=== PATIENT | female | born 1935 | race African-American/Black ===

== ENCOUNTER 2018-02-07 15:00 | Inpatient (IN) | payer MEDICARE, MEDICAID ==
[~2018-02-07] VITALS: Ht 162.6 cm; Wt 65.8 kg
[~2018-02-07 15:00] MED LIST: AMLO1CAP5 PO; ASPI-1159 PO; ESOM40CA PO; FOLI-43 PO; GABA-531 PO; letrozole PO; methimazole PO; proair INH
[2018-02-07] MEDS ORDERED: MORPHINE SULFATE 4 MG/ML CPJ (NOT FOR IM USE) IV STA (15:42)
[2018-02-07] MEDS ORDERED: NITROGLYCERIN OINT 1GM/INCH UDPKT TD STA (15:42)
[2018-02-07] MEDS ORDERED: MAGNESIUM/ALUMINUM HYDROXIDE/SIMETHICONE 30ML UDC PO STA (15:42)
[2018-02-07] MEDS ORDERED: FAMOTIDINE 20MG TABLET PO STA (15:42)
[2018-02-07] MEDS ORDERED: ONDANSETRON HCL 4MG/2ML INJ IV STA (15:42)
[2018-02-07] MEDS ORDERED: ASPIRIN 325MG EC TABLET PO ONE (15:45)
[2018-02-07] MEDS ORDERED: VISCOUS LIDOCAINE 2% 15 ML UDC MM ONE (15:45)
[2018-02-07] MEDS ORDERED: AMIODARONE HCL 50MG/ML 9ML VIAL IV ONE (15:45)
[2018-02-07] MEDS ORDERED: FAMOTIDINE 20MG/2ML VIAL IV ONE (15:45)
[2018-02-07 16:40] LABS: BASOPHILS % 0.6 % (0.0-2.0); EOSINOPHILS % 0.7 % (0.0-5.0); HEMATOCRIT. 36.4 % (36.0-48.0); HEMOGLOBIN. 12.3 g/dL (12.0-16.0); LYMPHOCYTES % 19.8 % (20.0-50.0); MEAN CORPUSCULAR HEMOGLOBIN 30.1 pg (28.0-32.0); MEAN CORPUSCULAR VOLUME 89.4 fL (81.0-99.0); MEAN PLATELET VOLUME 7.8 fl (7.4-10.4); MONOCYTES % 8.4 % (2.0-8.0); NEUTROPHILS % 70.5 % (40.0-76.0); PLATELET 270 x1000/uL (130-400); RED BLOOD CELL COUNT 4.08 mill/uL (4.2-5.4); RED CELL DISTRIBUTION WIDTH 13.8 % (11.6-14.6)
[2018-02-07 16:49] LABS: PARTIAL THROMBOPLASTIN TIME 26.1 sec (23.4-31.0); PROTHROMBIN TIME 10.4 sec (9.1-11.1)
[2018-02-07 16:52] LABS: CHLORIDE 107 mEq/L (98-107)
[2018-02-07 19:00] VITALS: BP 175/73
[2018-02-07] MEDS ORDERED: ONDANSETRON HCL 4MG/2ML INJ IV PRN (20:30)
[2018-02-07] MEDS ORDERED: GUAIFENESIN 200MG/10ML SUGAR FREE UDC PO PRN (20:30)
[2018-02-07] MEDS ORDERED: MAGNESIUM/ALUMINUM HYDROXIDE/SIMETHICONE 30ML UDC PO PRN (20:30)
[2018-02-07] MEDS ORDERED: DILTIAZEM HCL 180MG CAPSULE CD 24HR PO SCH (23:00)
[2018-02-07 23:09] VITALS: BP 175/73
[2018-02-07 23:11] VITALS: BP 175/73
[2018-02-07] MEDS: GABAPENTIN 300MG CAPSULE PO SCH (23:29)
[2018-02-07] MEDS: FAMOTIDINE 20MG TABLET PO SCH (23:29)
[2018-02-07] MEDS: SODIUM CHLORIDE 0.9% INJ 3ML FLUSH IVF SCH (23:29)
[2018-02-08 04:00] VITALS: BP 143/79
[2018-02-08] MEDS: SODIUM CHLORIDE 0.9% INJ 3ML FLUSH IVF SCH ×3 (06:00→22:03)
[2018-02-08 07:06] LABS: CHLORIDE 110 mEq/L (98-107)
[2018-02-08 07:16] LABS: CLARITY URINE CLEAR (CLEAR); COLOR URINE YELLOW (YELLOW); KETONES URINE NEGATIVE (NEGATIVE); LEUKOCYTE ESTERASE URINE NEGATIVE (NEGATIVE); NITRITE URINE NEGATIVE (NEGATIVE); OCCULT BLOOD URINE NEGATIVE (NEGATIVE); PH URINE 6.5 (4.5-8.0); PROTEIN URINE NEGATIVE (NEGATIVE); SPECIFIC GRAVITY URINE 1.006 (1.005-1.030); UROBILINOGEN URINE 0.2 E.U./dL (0.2-1.0)
[2018-02-08 07:29] LABS: PHOSPHORUS 3.8 mg/dL (2.5-4.9); T4 FREE 1.22 ng/dL (0.76-1.46)
[2018-02-08] MEDS: FOLIC ACID/VITAMIN B COMP W-C TABLET PO SCH (08:33)
[2018-02-08] MEDS: DOCUSATE SODIUM 100MG CAPSULE PO SCH ×2 (08:33→16:54)
[2018-02-08] MEDS: METHIMAZOLE 5MG TABLET PO SCH (08:33)
[2018-02-08] MEDS: ENOXAPARIN 40MG/0.4ML SYR SUBCUT SCH (08:34)
[2018-02-08 08:54] LABS: BASOPHILS % 0.6 % (0.0-2.0); EOSINOPHILS % 1.6 % (0.0-5.0); HEMATOCRIT. 37.1 % (36.0-48.0); HEMOGLOBIN. 12.5 g/dL (12.0-16.0); MEAN CORPUSCULAR HEMOGLOBIN 30.4 pg (28.0-32.0); MEAN CORPUSCULAR VOLUME 89.8 fL (81.0-99.0); MEAN PLATELET VOLUME 7.9 fl (7.4-10.4); NEUTROPHILS % 68.8 % (40.0-76.0); PLATELET 258 x1000/uL (130-400); RED BLOOD CELL COUNT 4.13 mill/uL (4.2-5.4); RED CELL DISTRIBUTION WIDTH 13.7 % (11.6-14.6)
[2018-02-08] MEDS ORDERED: LETROZOLE 2.5MG TABLET PO SCH (09:00)
[2018-02-08] MEDS: POLYETHYLENE GLYCOL 3350 (17GM) 1 DOSE PACK PO SCH (11:45)
[2018-02-08] MEDS ORDERED: ACETAMINOPHEN 650MG/20.3ML UDC PO PRN (11:45)
[2018-02-08 12:00] VITALS: BP 128/67
[2018-02-08] MEDS ORDERED: BENAZEPRIL 5MG TABLET PO SCH (12:00)
[2018-02-08] MEDS ORDERED: CLONIDINE 0.1MG TABLET PO PRN (12:45)
[2018-02-08 16:00] VITALS: BP 139/72
[2018-02-08] MEDS: FLUTICASONE/VILANTEROL 200-25 BLST.W.DEV ORI SCH (16:06)
[2018-02-08] MEDS: AMIODARONE HCL 200 MG TABLET PO SCH ×2 (16:51→21:00)
[2018-02-08] MEDS: ASPIRIN 81MG EC TABLET PO SCH (16:51)
[2018-02-08 20:00] VITALS: BP 151/81
[2018-02-08] MEDS: FAMOTIDINE 20MG TABLET PO SCH ×2 (20:58→21:00)
[2018-02-08] MEDS: GABAPENTIN 300MG CAPSULE PO SCH ×2 (20:58→21:00)
[2018-02-08] MEDS: DILTIAZEM HCL 120MG CAPSULE CD 24HR PO SCH ×2 (20:59→21:00)
[2018-02-09] VITALS: BP 158/71
[2018-02-09 04:59] VITALS: BP 160/83
[2018-02-09 08:00] VITALS: BP 177/88
[2018-02-09 08:15] LABS: BASOPHILS % 0.6 % (0.0-2.0); EOSINOPHILS % 2.3 % (0.0-5.0); HEMATOCRIT. 37.2 % (36.0-48.0); HEMOGLOBIN. 12.4 g/dL (12.0-16.0); LYMPHOCYTES % 22.9 % (20.0-50.0); MEAN CORPUSCULAR HEMOGLOBIN 29.9 pg (28.0-32.0); MEAN CORPUSCULAR VOLUME 89.8 fL (81.0-99.0); MEAN PLATELET VOLUME 8.3 fl (7.4-10.4); MONOCYTES % 10.1 % (2.0-8.0); NEUTROPHILS % 64.1 % (40.0-76.0); PLATELET 264 x1000/uL (130-400); RED BLOOD CELL COUNT 4.14 mill/uL (4.2-5.4); RED CELL DISTRIBUTION WIDTH 13.5 % (11.6-14.6)
[2018-02-09] MEDS: DOCUSATE SODIUM 100MG CAPSULE PO SCH ×2 (08:22→16:57)
[2018-02-09] MEDS: METHIMAZOLE 5MG TABLET PO SCH (08:22)
[2018-02-09] MEDS: ASPIRIN 81MG EC TABLET PO SCH (08:22)
[2018-02-09] MEDS: POLYETHYLENE GLYCOL 3350 (17GM) 1 DOSE PACK PO SCH (08:22)
[2018-02-09] MEDS: FOLIC ACID/VITAMIN B COMP W-C TABLET PO SCH (08:22)
[2018-02-09] MEDS: ENOXAPARIN 40MG/0.4ML SYR SUBCUT SCH (08:23)
[2018-02-09 08:26] LABS: CHLORIDE 109 mEq/L (98-107)
[2018-02-09] MEDS: AMIODARONE HCL 200 MG TABLET PO SCH (08:30)
[2018-02-09 08:44] LABS: CREATINE KINASE 53 IU/L (26-192); CREATINE KINASE MB FRACTION 1.2 ng/mL (0.5-3.6); HDL CHOLESTEROL 49 mg/dL (40-59); LDL CHOLESTEROL 83 mg/dL (5-100)
[2018-02-09] MEDS: FLUTICASONE/VILANTEROL 200-25 BLST.W.DEV ORI SCH (09:00)
[2018-02-09] MEDS ORDERED: BENAZEPRIL 10MG TABLET PO SCH (09:00)
[2018-02-09] MEDS ORDERED: DILTIAZEM HCL 300MG CAPSULE SR 24HR PO SCH ×2 (09:00→21:00)
[2018-02-09] MEDS ORDERED: LETROZOLE 2.5MG TABLET PO SCH (09:30)
[2018-02-09] MEDS ORDERED: PRAMOXINE HCL 1% FOAM TP SCH (10:00)
[2018-02-09 12:00] VITALS: BP 153/78
[2018-02-09] MEDS: SODIUM CHLORIDE 0.9% INJ 3ML FLUSH IVF SCH (13:23)
[2018-02-09] MEDS ORDERED: LOT10 PO (13:30)
[2018-02-09] MEDS ORDERED: DILT300C35 PO (13:30)
[2018-02-09 17:04] VITALS: BP 145/80
== END 2018-02-09 17:27 | disposition home health service (06) | DRG 309 ==
LOC: ER 17:30 → 7WST 20:20 → ENRESERV 21:54
PROVIDERS: ADMIT Internal Medicine Nephrology; ATTEND Internal Medicine Nephrology
DX: I48.0 Paroxysmal atrial fibrillation (principal); J98.11 Atelectasis; Z96.642 Presence of left artificial hip joint; E03.9 Hypothyroidism, unspecified; G62.9 Polyneuropathy, unspecified; F32.9 Major depressive disorder, single episode, unspecified; F17.200 Nicotine dependence, unspecified, uncomplicated; E05.90 Thyrotoxicosis, unspecified without thyrotoxic crisis or storm; I11.9 Hypertensive heart disease without heart failure; R63.4 Abnormal weight loss; I48.2 Chronic atrial fibrillation; J44.9 Chronic obstructive pulmonary disease, unspecified; K59.00 Constipation, unspecified; L29.9 Pruritus, unspecified; K21.9 Gastro-esophageal reflux disease without esophagitis; M81.0 Age-related osteoporosis without current pathological fracture; M19.90 Unspecified osteoarthritis, unspecified site; T45.8X5A Adverse effect of other primarily systemic and hematological agents, initial encounter; Y92.89 Other specified places as the place of occurrence of the external cause; Z85.3 Personal history of malignant neoplasm of breast; Z79.82 Long term (current) use of aspirin; Z79.899 Other long term (current) drug therapy; Z79.811 Long term (current) use of aromatase inhibitors; Z92.3 Personal history of irradiation; Z68.24 Body mass index [BMI] 24.0-24.9, adult; Z88.8 Allergy status to other drugs, medicaments and biological substances; Z88.2 Allergy status to sulfonamides
CPT/HCPCS: 36415; 71045; 80061; 82550; 82553; 83735; 83880; 84100; 84439; 84443; 84484; 85379; 93005; 93306; 96374; 99285; J0282; J1650; J2270; J2405; J3490

== ENCOUNTER 2018-08-03 11:12 | Inpatient (IN) | payer MEDICARE, MEDICAID ==
[~2018-08-03] VITALS: Ht 162.6 cm; Wt 56.8 kg
[~2018-08-03 11:12] MED LIST changes: -AMLO1CAP5 PO; +DILT300C35 PO; +LOT10 PO
[2018-08-03 12:18] LABS: BASOPHILS % 0.9 % (0.0-2.0); EOSINOPHILS % 0.5 % (0.0-5.0); HEMATOCRIT. 36.9 % (36.0-48.0); HEMOGLOBIN. 12.7 g/dL (12.0-16.0); LYMPHOCYTES % 14.8 % (20.0-50.0); MEAN CORPUSCULAR HEMOGLOBIN 30.5 pg (28.0-32.0); MEAN CORPUSCULAR VOLUME 88.5 fL (81.0-99.0); MEAN PLATELET VOLUME 7.7 fl (7.4-10.4); MONOCYTES % 8.1 % (2.0-8.0); NEUTROPHILS % 75.7 % (40.0-76.0); PLATELET 254 x1000/uL (130-400); RED BLOOD CELL COUNT 4.17 mill/uL (4.2-5.4); RED CELL DISTRIBUTION WIDTH 13.5 % (11.6-14.6)
[2018-08-03 12:20] LABS: CHLORIDE 109 mEq/L (98-107)
[2018-08-03 12:22] LABS: PROTHROMBIN TIME 10.2 sec (9.6-11.0)
[2018-08-03] MEDS ORDERED: MORPHINE SULFATE 4 MG/ML CPJ (NOT FOR IM USE) IV PRN (14:30)
[2018-08-03] MEDS ORDERED: IPRATROPIUM/ALBUTEROL 0.5-3(2.5)MG/3ML NEB INH PRN (14:30)
[2018-08-03] MEDS ORDERED: NITROGLYCERIN 0.4MG TABLET SL SL PRN (14:30)
[2018-08-03] MEDS ORDERED: TRAMADOL 50MG TABLET PO PRN (14:30)
[2018-08-03] MEDS ORDERED: DOCUSATE SODIUM 100MG CAPSULE PO PRN (14:30)
[2018-08-03] MEDS ORDERED: GUAIFENESIN 200MG/10ML SUGAR FREE UDC PO PRN (14:30)
[2018-08-03] MEDS ORDERED: ACETAMINOPHEN 325MG TABLET PO PRN (14:30)
[2018-08-03] MEDS ORDERED: ENOXAPARIN 40MG/0.4ML SYR SUBCUT SCH (14:30)
[2018-08-03] MEDS ORDERED: ONDANSETRON HCL 4MG/2ML INJ IV PRN (14:30)
[2018-08-03] MEDS ORDERED: CLONIDINE 0.1MG TABLET PO PRN (14:30)
[2018-08-03] MEDS ORDERED: MAGNESIUM/ALUMINUM HYDROXIDE/SIMETHICONE 30ML UDC PO PRN (14:30)
[2018-08-03 17:00] VITALS: BP 124/62
[2018-08-03] MEDS ORDERED: DILTIAZEM HCL 30MG TABLET PO SCH (18:00)
[2018-08-03] MEDS ORDERED: APIX2.5T PO (18:13)
[2018-08-03] MEDS ORDERED: LETR2.5T6 PO (18:17)
[2018-08-03] MEDS: ASPIRIN 81MG TABLET PO SCH (18:48)
[2018-08-03] MEDS: ENOXAPARIN 60MG/0.6ML SYR SUBCUT SCH ×2 (18:48→22:22)
[2018-08-03] MEDS: METHIMAZOLE 5MG TABLET PO SCH (18:48)
[2018-08-03] MEDS: DILTIAZEM HCL 60MG TABLET PO SCH (18:48)
[2018-08-03] MEDS: BENAZEPRIL 10MG TABLET PO SCH ×2 (18:49→22:21)
[2018-08-03 20:00] VITALS: BP 126/69
[2018-08-03] MEDS ORDERED: ZOLPIDEM TARTRATE 5MG TABLET PO PRN (21:00)
[2018-08-03] MEDS: GABAPENTIN 300MG CAPSULE PO SCH (22:21)
[2018-08-03] MEDS ORDERED: IOHEXOL-350 100 ML BOTTLE ONE (22:33)
[2018-08-04] VITALS: BP 123/68
[2018-08-04] MEDS: DILTIAZEM HCL 60MG TABLET PO SCH ×4 (00:18→18:07)
[2018-08-04 04:00] VITALS: BP 119/61
[2018-08-04 06:15] LABS: BASOPHILS % 0.8 % (0.0-2.0); EOSINOPHILS % 3.3 % (0.0-5.0); HEMATOCRIT. 32.7 % (36.0-48.0); HEMOGLOBIN. 10.9 g/dL (12.0-16.0); LYMPHOCYTES % 26.8 % (20.0-50.0); MEAN CORPUSCULAR HEMOGLOBIN 29.8 pg (28.0-32.0); MEAN CORPUSCULAR VOLUME 89.1 fL (81.0-99.0); MONOCYTES % 10.9 % (2.0-8.0); NEUTROPHILS % 58.2 % (40.0-76.0); PLATELET 227 x1000/uL (130-400); RED BLOOD CELL COUNT 3.67 mill/uL (4.2-5.4); RED CELL DISTRIBUTION WIDTH 13.4 % (11.6-14.6)
[2018-08-04 06:22] LABS: CHLORIDE 108 mEq/L (98-107)
[2018-08-04 06:26] LABS: CLARITY URINE CLEAR (CLEAR); COLOR URINE YELLOW (YELLOW); KETONES URINE NEGATIVE (NEGATIVE); LEUKOCYTE ESTERASE URINE NEGATIVE (NEGATIVE); NITRITE URINE NEGATIVE (NEGATIVE); OCCULT BLOOD URINE TRACE (NEGATIVE); PROTEIN URINE NEGATIVE (NEGATIVE); SPECIFIC GRAVITY URINE 1.039 (1.005-1.030)
[2018-08-04 06:36] LABS: PHOSPHORUS 3.7 mg/dL (2.5-4.9)
[2018-08-04 06:38] LABS: CREATINE KINASE 56 IU/L (26-192)
[2018-08-04 08:00] VITALS: BP 148/79
[2018-08-04] MEDS ORDERED: ASPIRIN 325MG EC TABLET PO SCH (09:00)
[2018-08-04] MEDS: METHIMAZOLE 5MG TABLET PO SCH (09:20)
[2018-08-04] MEDS: ASPIRIN 81MG TABLET PO SCH (09:20)
[2018-08-04] MEDS: PANTOPRAZOLE SODIUM 40 MG/VIAL IV SCH (09:21)
[2018-08-04] MEDS: ENOXAPARIN 60MG/0.6ML SYR SUBCUT SCH ×2 (09:21→21:39)
[2018-08-04] MEDS: BENAZEPRIL 10MG TABLET PO SCH ×2 (09:21→21:38)
[2018-08-04 12:00] VITALS: BP 140/59
[2018-08-04 13:16] LABS: TOTAL IRON BINDING CAPACITY 246 ug/dL (250-450)
[2018-08-04 16:00] VITALS: BP_SYST 118; BP_SYST 139; BP_DIAS 62; BP_DIAS 83
[2018-08-04 20:00] VITALS: BP 135/65
[2018-08-04] MEDS: GABAPENTIN 300MG CAPSULE PO SCH (21:39)
[2018-08-05] VITALS: BP 130/63
[2018-08-05] MEDS: DILTIAZEM HCL 60MG TABLET PO SCH ×3 (01:17→12:45)
[2018-08-05 04:00] VITALS: BP 150/65
[2018-08-05 06:47] LABS: BASOPHILS % 0.7 % (0.0-2.0); EOSINOPHILS % 2.7 % (0.0-5.0); HEMATOCRIT. 34.2 % (36.0-48.0); HEMOGLOBIN. 11.3 g/dL (12.0-16.0); MEAN CORPUSCULAR HEMOGLOBIN 29.5 pg (28.0-32.0); MEAN CORPUSCULAR VOLUME 89.1 fL (81.0-99.0); MEAN PLATELET VOLUME 8.4 fl (7.4-10.4); MONOCYTES % 10.6 % (2.0-8.0); PLATELET 217 x1000/uL (130-400); RED BLOOD CELL COUNT 3.84 mill/uL (4.2-5.4); RED CELL DISTRIBUTION WIDTH 13.4 % (11.6-14.6)
[2018-08-05 06:57] LABS: CHLORIDE 108 mEq/L (98-107)
[2018-08-05 07:19] LABS: PHOSPHORUS 3.3 mg/dL (2.5-4.9)
[2018-08-05 08:00] VITALS: BP 123/86
[2018-08-05] MEDS: BENAZEPRIL 10MG TABLET PO SCH (09:58)
[2018-08-05] MEDS: ASPIRIN 81MG TABLET PO SCH (09:58)
[2018-08-05] MEDS: METHIMAZOLE 5MG TABLET PO SCH (09:58)
[2018-08-05] MEDS: PANTOPRAZOLE SODIUM 40 MG/VIAL IV SCH (09:58)
[2018-08-05] MEDS: ENOXAPARIN 60MG/0.6ML SYR SUBCUT SCH (10:01)
[2018-08-05 12:00] VITALS: BP 123/86
[2018-08-05 14:39] VITALS: BP 123/86
== END 2018-08-05 16:05 | disposition home health service (06) | DRG 309 ==
LOC: ER 11:12 → 5WST 13:55 → EDBEDREQ 13:59 → SUPCPDRO 14:15 → ENRESERV 14:22
PROVIDERS: ADMIT Internal Medicine; ATTEND Internal Medicine
DX: I48.0 Paroxysmal atrial fibrillation (principal); R04.2 Hemoptysis; I25.119 Atherosclerotic heart disease of native coronary artery with unspecified angina pectoris; I12.9 Hypertensive chronic kidney disease with stage 1 through stage 4 chronic kidney disease, or unspecified chronic kidney disease; N18.3 Chronic kidney disease, stage 3 (moderate); J44.9 Chronic obstructive pulmonary disease, unspecified; K21.9 Gastro-esophageal reflux disease without esophagitis; R79.89 Other specified abnormal findings of blood chemistry; E05.90 Thyrotoxicosis, unspecified without thyrotoxic crisis or storm; M19.90 Unspecified osteoarthritis, unspecified site; F17.210 Nicotine dependence, cigarettes, uncomplicated; E78.00 Pure hypercholesterolemia, unspecified; G62.9 Polyneuropathy, unspecified; Z96.642 Presence of left artificial hip joint; M81.0 Age-related osteoporosis without current pathological fracture; Z79.811 Long term (current) use of aromatase inhibitors; Z92.3 Personal history of irradiation; Z85.3 Personal history of malignant neoplasm of breast; Z92.21 Personal history of antineoplastic chemotherapy; Z90.710 Acquired absence of both cervix and uterus; Z79.01 Long term (current) use of anticoagulants; Z79.82 Long term (current) use of aspirin; Z79.899 Other long term (current) drug therapy; Z88.8 Allergy status to other drugs, medicaments and biological substances; Z88.1 Allergy status to other antibiotic agents; Z88.2 Allergy status to sulfonamides; Z71.6 Tobacco abuse counseling
CPT/HCPCS: 36415; 71045; 71275; 76705; 80061; 82550; 82553; 82570; 82728; 83036; 83540; 83550; 83735; 83880; 83935; 84100; 84156; 84300; 84443; 84484; 85379; 86850; 86900; 93005; 93306; 93970; 97162; 97166; 99285; 99406; C9113; J1650; Q9967

== ENCOUNTER 2021-08-08 13:16 | Inpatient (IN) | payer MEDICARE, MEDICAID ==
[~2021-08-08] VITALS: Ht 165.1 cm; Wt 51.3 kg
[~2021-08-08 13:16] MED LIST changes: -ASPI-1159 PO; +BENA10TA75 PO; -GABA-531 PO; +GABA-532 PO; +LETR2.5T7 PO; -LOT10 PO; -letrozole PO
[2021-08-08] MEDS ORDERED: VANCOMYCIN 1G PREMIX 200 ML IV ONE (15:00)
[2021-08-08] MEDS ORDERED: PIPERACILLIN/TAZ 3.375G PREMIX 50 ML IV ONE (15:00)
[2021-08-08 15:23] LABS: BASOPHILS % 0.7 % (0.0-2.0); EOSINOPHILS % 3.2 % (0.0-5.0); HEMATOCRIT. 35.7 % (36.0-48.0); HEMOGLOBIN. 11.6 g/dL (12.0-16.0); LYMPHOCYTES % 18.7 % (20.0-50.0); MEAN CORPUSCULAR HEMOGLOBIN 28.5 pg (28.0-32.0); MEAN CORPUSCULAR VOLUME 87.8 fL (81.0-99.0); MEAN PLATELET VOLUME 8.3 fl (7.4-10.4); NEUTROPHILS % 67.4 % (40.0-76.0); PLATELET 245 x1000/uL (130-400); RED BLOOD CELL COUNT 4.07 mill/uL (4.2-5.4); RED CELL DISTRIBUTION WIDTH 14.8 % (11.6-14.6)
[2021-08-08 15:30] LABS: CHLORIDE 109 mEq/L (98-107)
[2021-08-08] MEDS ORDERED: ONDANSETRON HCL 4MG/2ML INJ IV PRN (16:30)
[2021-08-08] MEDS ORDERED: IPRATROPIUM/ALBUTEROL 0.5-3(2.5)MG/3ML NEB NEB PRN (16:30)
[2021-08-08] MEDS ORDERED: DOCUSATE SODIUM 100MG CAPSULE PO PRN (16:30)
[2021-08-08] MEDS ORDERED: ACETAMINOPHEN 325MG TABLET PO PRN (16:30)
[2021-08-08] MEDS ORDERED: ENOXAPARIN 40MG/0.4ML SYR SUBCUT SCH (16:30)
[2021-08-08] MEDS ORDERED: MAGNESIUM/ALUMINUM HYDROXIDE/SIMETHICONE 30ML UDC PO PRN (16:30)
[2021-08-08] MEDS ORDERED: CLONIDINE 0.1MG TABLET PO PRN (16:30)
[2021-08-08] MEDS ORDERED: NITROGLYCERIN 0.4MG TABLET SL SL PRN (16:30)
[2021-08-08] MEDS ORDERED: GUAIFENESIN 200MG/10ML SUGAR FREE UDC PO PRN (16:30)
[2021-08-08 17:47] LABS: T4 FREE 1.94 ng/dL (0.76-1.46)
[2021-08-08 17:54] LABS: DIGOXIN 0.1 ng/mL (0.9-2.0)
[2021-08-08] MEDS ORDERED: APIXABAN 5 MG TABLET PO SCH ×2 (18:00→22:31)
[2021-08-08 18:01] LABS: VITAMIN B12 SERUM 531 pg/mL (211-911)
[2021-08-08 21:40] VITALS: BP 140/84
[2021-08-08] MEDS ORDERED: PIPERACILLIN/TAZOBACTAM 3.375 G in DEXTROSE 5% WATER 50 ML IV SCH (22:00)
[2021-08-08] MEDS ORDERED: CARVEDILOL 3.125 MG TABLET PO NR (22:33)
[2021-08-08] MEDS: METHIMAZOLE 10MG TABLET PO SCH (22:53)
[2021-08-08] MEDS: ASCORBIC ACID 500 MG TABLET PO SCH (22:53)
[2021-08-08 23:21] VITALS: BP 140/84
[2021-08-08] MEDS ORDERED: AMLO10TA80 PO (23:42)
[2021-08-08] MEDS ORDERED: FAMO20TA8 PO (23:42)
[2021-08-08] MEDS ORDERED: MELO-104 PO (23:42)
[2021-08-08] MEDS ORDERED: OLAN2.5T29 PO (23:42)
[2021-08-08] MEDS ORDERED: DILT60TA41 PO (23:42)
[2021-08-08] MEDS ORDERED: GABA-529 PO (23:42)
[2021-08-08] MEDS ORDERED: TRAZ-251 PO (23:42)
[2021-08-08] MEDS: PIPERACILLIN/TAZOBACTAM 3.375 G in DEXTROSE 5% WATER 50 ML IV SCH (23:59)
[2021-08-09] VITALS: BP 138/94
[2021-08-09 01:18] LABS: CREATINE KINASE MB FRACTION 1.1 ng/mL (0.5-3.6)
[2021-08-09 04:00] VITALS: BP_SYST 137; BP_SYST 138; BP_DIAS 87; BP_DIAS 94
[2021-08-09] MEDS: CARVEDILOL 3.125 MG TABLET PO SCH ×2 (06:12→18:14)
[2021-08-09] MEDS: METHIMAZOLE 10MG TABLET PO SCH ×3 (06:13→21:41)
[2021-08-09] MEDS: APIXABAN 2.5 MG TABLET PO SCH ×2 (06:13→18:15)
[2021-08-09] MEDS: PIPERACILLIN/TAZOBACTAM 3.375 G in DEXTROSE 5% WATER 50 ML IV SCH ×3 (06:13→21:41)
[2021-08-09 07:36] LABS: CHLORIDE 111 mEq/L (98-107)
[2021-08-09 07:42] LABS: BASOPHILS % 0.6 % (0.0-2.0); EOSINOPHILS % 4.8 % (0.0-5.0); HEMATOCRIT. 36.9 % (36.0-48.0); HEMOGLOBIN. 12.1 g/dL (12.0-16.0); LYMPHOCYTES % 21.9 % (20.0-50.0); MEAN CORPUSCULAR HEMOGLOBIN 28.6 pg (28.0-32.0); MEAN CORPUSCULAR VOLUME 87.2 fL (81.0-99.0); MEAN PLATELET VOLUME 8.4 fl (7.4-10.4); MONOCYTES % 13.6 % (2.0-8.0); NEUTROPHILS % 59.1 % (40.0-76.0); PLATELET 238 x1000/uL (130-400); RED BLOOD CELL COUNT 4.24 mill/uL (4.2-5.4); RED CELL DISTRIBUTION WIDTH 14.5 % (11.6-14.6)
[2021-08-09 07:43] LABS: CREATINE KINASE 16 IU/L (26-192); CREATINE KINASE MB FRACTION < 1.0 ng/mL (0.5-3.6); PHOSPHORUS 3.5 mg/dL (2.5-4.9)
[2021-08-09 08:00] VITALS: BP 130/79
[2021-08-09] MEDS: ASPIRIN 81MG EC TABLET PO SCH (08:52)
[2021-08-09] MEDS: ASCORBIC ACID 500 MG TABLET PO SCH ×2 (08:52→21:41)
[2021-08-09] MEDS: CHOLECALCIFEROL (D3) 1000 UNIT TABLET PO SCH (08:52)
[2021-08-09] MEDS: ZINC SULFATE 220 MG ( 50 ) CAPSULE PO SCH (08:52)
[2021-08-09] MEDS: PANTOPRAZOLE SODIUM 40 MG/VIAL IV SCH (08:52)
[2021-08-09 12:00] VITALS: BP 116/70
[2021-08-09] MEDS: VANCOMYCIN 750MG PMX (XELLIA) 150 ML IV SCH (13:49)
[2021-08-09] MEDS ORDERED: PAMIDRONATE DISODIUM 90 MG in SODIUM CHLORIDE 0.9% 1,000 ML IV ONE (15:00)
[2021-08-09 16:00] VITALS: BP 120/79
[2021-08-09 20:00] VITALS: BP 113/77
[2021-08-09] MEDS ORDERED: DILT60TA35 MT (20:27)
[2021-08-09] MEDS ORDERED: CLON0.1T PO (20:37)
[2021-08-09] MEDS ORDERED: ASCO-339 MT (20:37)
[2021-08-09] MEDS ORDERED: ASPI-1497 MT (20:37)
[2021-08-09] MEDS: ACETAMINOPHEN 325MG TABLET PO PRN (21:42)
[2021-08-10] VITALS: BP 119/69
[2021-08-10 04:00] VITALS: BP 131/72
[2021-08-10] MEDS: PIPERACILLIN/TAZOBACTAM 3.375 G in DEXTROSE 5% WATER 50 ML IV SCH ×3 (05:22→21:23)
[2021-08-10] MEDS: APIXABAN 2.5 MG TABLET PO SCH ×2 (05:22→17:40)
[2021-08-10] MEDS: METHIMAZOLE 10MG TABLET PO SCH ×3 (05:23→21:23)
[2021-08-10] MEDS: CARVEDILOL 3.125 MG TABLET PO SCH ×2 (05:23→17:40)
[2021-08-10 08:00] VITALS: BP 107/78
[2021-08-10] MEDS: ASPIRIN 81MG EC TABLET PO SCH (08:05)
[2021-08-10] MEDS: PANTOPRAZOLE SODIUM 40 MG/VIAL IV SCH (08:05)
[2021-08-10] MEDS: CHOLECALCIFEROL (D3) 1000 UNIT TABLET PO SCH (08:05)
[2021-08-10] MEDS: ASCORBIC ACID 500 MG TABLET PO SCH ×2 (08:05→21:22)
[2021-08-10] MEDS: ZINC SULFATE 220 MG ( 50 ) CAPSULE PO SCH (08:05)
[2021-08-10 12:00] VITALS: BP 136/74
[2021-08-10] MEDS: VANCOMYCIN 750MG PMX (XELLIA) 150 ML IV SCH (12:59)
[2021-08-10 16:00] VITALS: BP 133/81
[2021-08-10 20:00] VITALS: BP 156/72
[2021-08-11] VITALS: BP 134/88
[2021-08-11] MEDS: ZOLPIDEM TARTRATE 5MG TABLET PO PRN (00:13)
[2021-08-11 04:00] VITALS: BP 157/88
[2021-08-11] MEDS: METHIMAZOLE 10MG TABLET PO SCH ×3 (06:09→21:33)
[2021-08-11] MEDS: PIPERACILLIN/TAZOBACTAM 3.375 G in DEXTROSE 5% WATER 50 ML IV SCH ×3 (06:09→21:33)
[2021-08-11] MEDS: CARVEDILOL 3.125 MG TABLET PO SCH ×2 (06:09→17:26)
[2021-08-11] MEDS: APIXABAN 2.5 MG TABLET PO SCH ×2 (06:10→17:26)
[2021-08-11 08:00] VITALS: BP 133/75
[2021-08-11 08:07] LABS: CHLORIDE 111 mEq/L (98-107)
[2021-08-11] MEDS: PANTOPRAZOLE SODIUM 40 MG/VIAL IV SCH (08:38)
[2021-08-11] MEDS: ASCORBIC ACID 500 MG TABLET PO SCH ×2 (08:38→21:33)
[2021-08-11] MEDS: ZINC SULFATE 220 MG ( 50 ) CAPSULE PO SCH (08:38)
[2021-08-11] MEDS: ASPIRIN 81MG EC TABLET PO SCH (08:38)
[2021-08-11] MEDS: CHOLECALCIFEROL (D3) 1000 UNIT TABLET PO SCH (08:39)
[2021-08-11 12:00] VITALS: BP 123/96
[2021-08-11 16:00] VITALS: BP 134/84
[2021-08-11] MEDS: VANCOMYCIN 500 MG in DEXT 5% WATER 100 ML IV SCH (17:28)
[2021-08-11 20:00] VITALS: BP 100/76
[2021-08-12] VITALS: BP 156/96
[2021-08-12 04:00] VITALS: BP 125/74
[2021-08-12] MEDS: METHIMAZOLE 10MG TABLET PO SCH ×3 (06:17→22:17)
[2021-08-12] MEDS: APIXABAN 2.5 MG TABLET PO SCH ×2 (06:17→17:39)
[2021-08-12] MEDS: CARVEDILOL 3.125 MG TABLET PO SCH ×2 (06:17→17:39)
[2021-08-12] MEDS: PIPERACILLIN/TAZOBACTAM 3.375 G in DEXTROSE 5% WATER 50 ML IV SCH ×2 (06:17→13:30)
[2021-08-12 08:30] VITALS: BP 153/53
[2021-08-12] MEDS: PANTOPRAZOLE SODIUM 40 MG/VIAL IV SCH (08:31)
[2021-08-12] MEDS: CHOLECALCIFEROL (D3) 1000 UNIT TABLET PO SCH (08:32)
[2021-08-12] MEDS: ASPIRIN 81MG EC TABLET PO SCH (08:32)
[2021-08-12] MEDS: ZINC SULFATE 220 MG ( 50 ) CAPSULE PO SCH (08:32)
[2021-08-12] MEDS: ASCORBIC ACID 500 MG TABLET PO SCH ×2 (08:32→22:17)
[2021-08-12 12:00] VITALS: BP 155/84
[2021-08-12 16:00] VITALS: BP 160/72
[2021-08-12] MEDS: VANCOMYCIN 500 MG in DEXT 5% WATER 100 ML IV SCH (17:38)
[2021-08-12 20:00] VITALS: BP 177/85
[2021-08-12] MEDS: ZOLPIDEM TARTRATE 5MG TABLET PO PRN (22:16)
[2021-08-12] MEDS: ACETAMINOPHEN 325MG TABLET PO PRN (22:16)
[2021-08-13] VITALS: BP 128/80
[2021-08-13] MEDS: PIPERACILLIN/TAZOBACTAM 3.375 G in DEXTROSE 5% WATER 50 ML IV SCH ×3 (00:06→14:03)
[2021-08-13 04:00] VITALS: BP 121/80
[2021-08-13] MEDS: METHIMAZOLE 10MG TABLET PO SCH ×3 (07:17→21:16)
[2021-08-13] MEDS: CARVEDILOL 3.125 MG TABLET PO SCH ×2 (07:17→17:44)
[2021-08-13] MEDS: ASCORBIC ACID 500 MG TABLET PO SCH ×2 (07:18→21:16)
[2021-08-13 08:30] VITALS: BP 128/83
[2021-08-13] MEDS: ASPIRIN 81MG EC TABLET PO SCH (08:41)
[2021-08-13] MEDS: CHOLECALCIFEROL (D3) 1000 UNIT TABLET PO SCH (08:41)
[2021-08-13] MEDS: ZINC SULFATE 220 MG ( 50 ) CAPSULE PO SCH (08:42)
[2021-08-13] MEDS: FAMOTIDINE 20MG/2ML VIAL IV SCH (08:42)
[2021-08-13 12:30] VITALS: BP 142/75
[2021-08-13 16:30] VITALS: BP 129/76
[2021-08-13] MEDS: VANCOMYCIN 500 MG in DEXT 5% WATER 100 ML IV SCH (17:44)
[2021-08-13] MEDS: APIXABAN 2.5 MG TABLET PO SCH ×2 (17:44→17:49)
[2021-08-13 20:00] VITALS: BP 115/74
[2021-08-14 04:00] VITALS: BP 149/91
[2021-08-14] MEDS: CARVEDILOL 3.125 MG TABLET PO SCH ×2 (06:49→16:44)
[2021-08-14] MEDS: APIXABAN 2.5 MG TABLET PO SCH ×2 (06:49→17:00)
[2021-08-14] MEDS: METHIMAZOLE 10MG TABLET PO SCH ×3 (06:55→21:40)
[2021-08-14 08:00] VITALS: BP 135/74
[2021-08-14] MEDS: ASCORBIC ACID 500 MG TABLET PO SCH ×2 (09:34→21:40)
[2021-08-14] MEDS: ASPIRIN 81MG EC TABLET PO SCH (09:34)
[2021-08-14] MEDS: ZINC SULFATE 220 MG ( 50 ) CAPSULE PO SCH (09:34)
[2021-08-14] MEDS: FAMOTIDINE 20MG/2ML VIAL IV SCH (09:35)
[2021-08-14] MEDS: CHOLECALCIFEROL (D3) 1000 UNIT TABLET PO SCH (09:35)
[2021-08-14 12:00] VITALS: BP 119/54
[2021-08-14 16:00] VITALS: BP 115/83
[2021-08-14 17:47] VITALS: BP_SYST 114; BP_SYST 136; BP_DIAS 61; BP_DIAS 75
[2021-08-14 20:00] VITALS: BP 142/82
[2021-08-15] VITALS: BP 142/76
[2021-08-15 04:00] VITALS: BP 136/75
[2021-08-15] MEDS: APIXABAN 2.5 MG TABLET PO SCH ×2 (05:59→17:25)
[2021-08-15] MEDS: METHIMAZOLE 10MG TABLET PO SCH ×2 (05:59→14:43)
[2021-08-15] MEDS: CARVEDILOL 3.125 MG TABLET PO SCH ×2 (06:00→17:25)
[2021-08-15 08:00] VITALS: BP 121/69
[2021-08-15] MEDS: ZINC SULFATE 220 MG ( 50 ) CAPSULE PO SCH (08:18)
[2021-08-15] MEDS: CHOLECALCIFEROL (D3) 1000 UNIT TABLET PO SCH (08:18)
[2021-08-15] MEDS: ASCORBIC ACID 500 MG TABLET PO SCH (08:18)
[2021-08-15] MEDS: ASPIRIN 81MG EC TABLET PO SCH (08:18)
[2021-08-15] MEDS ORDERED: FAMOTIDINE 20MG TABLET PO SCH (09:00)
[2021-08-15 12:00] VITALS: BP 119/60
[2021-08-15 16:00] VITALS: BP 136/61
== END 2021-08-15 17:43 | DRG 871 ==
LOC: ER 13:16 → EDBEDREQ 17:29 → ENRESERV 19:17 → 7EST 21:45
PROVIDERS: ADMIT Internal Medicine; ATTEND Internal Medicine
DX: A41.9 Sepsis, unspecified organism (principal); J18.9 Pneumonia, unspecified organism; G92.8 Other toxic encephalopathy; J44.0 Chronic obstructive pulmonary disease with (acute) lower respiratory infection; E46 Unspecified protein-calorie malnutrition; Z68.1 Body mass index [BMI] 19.9 or less, adult; D63.8 Anemia in other chronic diseases classified elsewhere; E03.9 Hypothyroidism, unspecified; E83.52 Hypercalcemia; I11.0 Hypertensive heart disease with heart failure; I48.91 Unspecified atrial fibrillation; I50.9 Heart failure, unspecified; Z20.822 Contact with and (suspected) exposure to COVID-19; L89.622 Pressure ulcer of left heel, stage 2; Z88.8 Allergy status to other drugs, medicaments and biological substances; Z88.2 Allergy status to sulfonamides; S30.0XXA Contusion of lower back and pelvis, initial encounter; S90.112A Contusion of left great toe without damage to nail, initial encounter; R79.89 Other specified abnormal findings of blood chemistry
CPT/HCPCS: 36415; 71045; 80048; 80053; 80162; 80202; 82040; 82550; 82553; 82607; 83605; 83735; 83880; 83970; 84100; 84134; 84439; 84443; 84484; 85025; 87426; 93005; 93923; 93970; 99285; C9113; J2430; J2543; J3370; J3490; J7040; J7060